=== PATIENT | male | born 1955 | race Caucasian/White ===

== ENCOUNTER 2018-05-05 05:33 | Emergency (ER) | payer OTHER ==
[~2018-05-05] VITALS: Ht 182.9 cm; Wt 109.0 kg
[2018-05-05 05:51] VITALS: Ht 182.9 cm; Wt 109.0 kg
[2018-05-05] MEDS ORDERED: NAPR-985 PO (08:14)
--- NOTE | 2018-05-05 10:02 | ERD ---
ER Documentation Chief Complaint Chief Complaint right arm injury HPI 62-year-old male presenting with pain to his right upper arm. Patient states 1 week ago he was taking milk out of the fridge when he felt sudden sudden snap in his arm. He denies any numbness or tingling. He has motion of his arm but is limited. He denies any numbness or tingling. Denies any chest pain or shortness of breath. ROS All systems reviewed and are negative except as per history of present illness. Medications Home Meds Active Scripts Naproxen* (Naprosyn*) 500 Mg Tablet, 500 MG PO BID PRN for PAIN AND/OR INFLAMMATION, #30 TAB Prov:ROQUE LEBLANC PA-C 05/05/18 Allergies Allergies: Coded Allergies: No Known Allergy (Unverified , 05/05/18) PMhx/Soc History of Surgery: Yes Hx Alcohol Use: No (former) Hx Substance Use: Yes (CBD oil) Hx Tobacco Use: Yes Smoking Status: Current every day smoker FmHx Family History: No diabetes, No coronary disease, No other Physical Exam Vitals Vital Signs Date Temp Pulse Resp B/P (MAP) Pulse Ox O2 O2 Flow FiO2 Time Delivery Rate 05/05/18 69 18 100/48 95 05:51 (65) Physical Exam GENERAL: The patient is well-appearing, well-nourished, in no acute distress CHEST: Clear to auscultation bilaterally. There are no rales, wheezes or rhonchi. HEART: Regular rate and rhythm. No murmurs, clicks, rubs or gallops. No S3 or S4. EXTREMITIES: Tender to palpation over right bicep muscle with bulging noted to the mid humerus. No obvious deformities. No tenting noted of the clavicle and normal range of motion of the shoulder. Strength is mildly decreased on flexion of the right upper extremity. Patient is able to extend the right arm. NEUROLOGIC: Pulses intact to right upper extremity. Neurovascularly intact to distal fingertips. SKIN: Large bruising noted of the right upper arm extending to right elbow. No lacerations or abrasions. Procedures/MDM DIAGNOSTIC IMAGING REPORT Patient: LISANDRA MITCHELL : 1955 Age: 62 Sex: M MR #: [id number] DOS: 05/05/18718 Ordering MD: ORESTES LEBLANC PA-C Location: [facility] Room/Bed: PROCEDURE: Right humerus x-ray CLINICAL INDICATION: Pain TECHNIQUE: AP and lateral views of the humerus were obtained. COMPARISON: None FINDINGS: There is normal mineralization. No acute fracture or dislocation is seen. There is no significant soft tissue swelling. IMPRESSION: Normal x-ray of the right humerus. DIAGNOSTIC IMAGING REPORT Patient: LISANDRA MITCHELL : 1955 Age: 62 Sex: M MR #: [id number] DOS: 05/05/18718 Ordering MD: ORESTES LEBLANC PA-C Location: [facility] Room/Bed: PROCEDURE: XR right shoulder. CLINICAL INDICATION: Pain TECHNIQUE: AP, Internal and external rotation views of the right shoulder were performed. COMPARISON: None. FINDINGS: There are moderate degenerative changes involving the acromioclavicular joint with mild joint space narrowing. There is normal osseous mineralization and alignment. There are subchondral cysts seen within the right humeral head. No fracture or osseous lesion is identified. The soft tissues are unremarkable. 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 Subchondral cysts seen in the right humeral head. ER Course: sling given ED. MDM: 62-year-old male presenting with pain to right upper arm. Since findings are consistent with biceps tear. Patient does have some range of motion so I have low suspicion for a complete tear however 1 of the insertion points is likely ruptured. Patient is recommended to follow-up with orthopedics as he will likely need surgical intervention or physical therapy assistance. I have low suspicion for neurovascular deficit or vascular compromise. I have low suspicion for blood clot. I have low suspicion for acute fracture dislocation. Patient is recommended to follow-up with orthopedics and discharged with supportive medications. All questions answered at discharge Departure Diagnosis: Primary Impression: Biceps rupture, proximal Condition: Stable Patient Instructions: Muscle Strain, Extremity Referrals: [facility] YOU HAVE RECEIVED A MEDICAL SCREENING EXAM AND THE RESULTS INDICATE THAT YOU DO NOT HAVE A CONDITION THAT REQUIRES URGENT TREATMENT IN THE EMERGENCY DEPARTMENT. FURTHER EVALUATION AND TREATMENT OF YOUR CONDITION CAN WAIT UNTIL YOU ARE SEEN IN YOUR DOCTORS OFFICE WITHIN THE NEXT 1-2 DAYS. IT IS YOUR RESPONSIBILITY TO MAKE AN APPOINTMENT FOR FOLOW-UP CARE. IF YOU HAVE A PRIMARY DOCTOR --you should call your primary doctor and schedule an appointment IF YOU DO NOT HAVE A PRIMARY DOCTOR YOU CAN CALL OUR PHYSICIAN REFERRAL HOTLINE AT IF YOU CAN NOT AFFORD TO SEE A PHYSICIAN YOU CAN CHOSE FROM THE FOLLOWING [facility] [address] [facility] [address] [facility] [facility] [address] [facility] [address] [facility] [address]. [facility] [address] [facility] Hours: Mon-Fri 9:00 AM - 5:00 PM Additional Instructions: FOLLOW UP WITH YOUR PRIMARY CARE PHYSICIAN TOMORROW.Return to this facility if you are not improving as expected. ROQUE LEBLANC PA-C May 05, 2018 10:02
== END 2018-05-05 08:49 | disposition home or self-care (01) ==
LOC: FTE 05:33
DX: S40.021A Contusion of right upper arm, initial encounter (principal); F17.210 Nicotine dependence, cigarettes, uncomplicated; W22.8XXA Striking against or struck by other objects, initial encounter; Y92.9 Unspecified place or not applicable
CPT/HCPCS: 73030; 73060; Z7502